=== PATIENT | male | born 1985 | race American Indian/Alaskan Native ===

== ENCOUNTER 2017-12-08 01:09 | Emergency (ER) | payer OTHER ==
[2017-12-08 02:01] LABS: Basophils % (Auto) 0.3 % (0.0-1.8); Eosinophils # (Auto) 0.1 K/mm3 (0.0-0.4); Eosinophils % (Auto) 0.5 % (0.0-4.3); Hematocrit 47.5 % (35.5-45.6); Hemoglobin 15.9 gm/dl (11.8-15.2); Lymphocytes # (Auto) 2.8 K/mm3 (1.2-5.4); Lymphocytes % (Auto) 21.3 % (13.4-35.0); Mean Corpuscular HGB Conc 34 % (32-34); Mean Corpuscular Hemoglobin 28 pg (28-32); Mean Corpuscular Volume 84 fl (84-94); Monocytes # (Auto) 1.4 K/mm3 (0.0-0.8); Monocytes % (Auto) 10.5 % (0.0-7.3); Platelet Count 200 K/mm3 (140-440); Red Blood Count 5.64 M/mm3 (3.65-5.03); Red Cell Distribution Width 14.6 % (13.2-15.2)
[2017-12-08 02:11] LABS: INR 1.1 (0.87-1.13)
[2017-12-08 02:12] LABS: Partial Thromboplastin Time 23.5 Sec. (24.2-36.6)
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
[2017-12-08 02:20] LABS: BUN/Creatinine Ratio 9; Blood Urea Nitrogen 10 mg/dL (9-20); Calcium 8.6 mg/dL (8.4-10.2); Hemolysis Index 6
[2017-12-08] MEDS ORDERED: ceFAZolin 1 GM in NACL 0.9% 20 ML IV ONE (02:30)
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
[2017-12-08] MEDS ORDERED: NACL 0.9% 1000 ML 1,000 ML IV ONE (05:33)
[2017-12-08] MEDS ORDERED: NACL 0.9% IR ONE (05:40)
[2017-12-08 08:45] VITALS: BP 132/74
== END 2017-12-08 08:43 | disposition home or self-care (01) ==
LOC: ED 01:09
DX: S81.801A Unspecified open wound, right lower leg, initial encounter (principal); W34.09XA Accidental discharge from other specified firearms, initial encounter; Y93.89 Activity, other specified; Y99.8 Other external cause status; Y92.89 Other specified places as the place of occurrence of the external cause
CPT/HCPCS: 36415; 73590; 80048; 85025; 85610; 85730; 96361; 96374; 99284; G0480; J0690; J7030; 80320

== ENCOUNTER 2017-12-09 14:34 | Emergency (ER) | payer SELFPAY ==
[2017-12-09 15:30] VITALS: BP 159/94
== END 2017-12-09 17:45 | disposition left against medical advice (07) ==
LOC: ED 14:34
DX: Z48.01 Encounter for change or removal of surgical wound dressing (principal); Z53.21 Procedure and treatment not carried out due to patient leaving prior to being seen by health care provider